=== PATIENT | male | born 1940 | race Caucasian/White ===

== ENCOUNTER → 2017-06-05 | Outpatient (CLI) | payer BC ==
[~2017-06-05] MED LIST: ASCO500 PO; ASPI325 PO; ASPI81CH; ASPI81CH PO; CHOL10002 PO; CLOP75 PO; COLC.6 PO; Carac30 GM TP; ENOX40I SC; ERYT.5TO OD; EZET10; FISH1000 PO; GABA100 PO; GLIP10ER PO; GLIP5ER; GLIP5ER PO; Hair, Skin & N1 EACH PO; IRON325 MG PO; Klor-Con 1010 MEQ PO; LOSHYD; LOSHYD100 PO; MECL25 PO; METF500 PO; METF500C PO; METHYLFOLATE PO; NEBI5 PO; OXYACE5T PO; POTA10T PO; POTASSIUM CHLO20 MEQ PO; POTCHL20ER; PREG75 PO; Prilosec Otc20 MG PO; Pyridium200 MG PO; VITAMIN B122500 MCG; VITAMIN C125 MG PO; VITAMIN D33000 UNIT PO; Vitamin C100 M1; Voltaren100 GM TP; WARF1 PO; WARF5 PO; [UNRECOGNIZED DRUG - OTHER] INJ; [UNRECOGNIZED DRUG - OTHER] PO
== END | disposition home or self-care (01) ==
LOC: PLD 10:09 → LAB SHORT 10:09
DX: D48.5 Neoplasm of uncertain behavior of skin (principal)
CPT/HCPCS: 88305

== ENCOUNTER 2018-07-31 10:54 | Day surgery (SDC) | payer BC ==
[~2018-07-31] VITALS: Ht 170.2 cm; Wt 71.2 kg
[~2018-07-31 10:54] MED LIST changes: +AMLO5 PO; -ASPI81CH; +FLUOROURACIL30 GM TOP; +GLIP10 PO; +LOSARTAN-HCTZ1 EAC1 PO; +METANX CAPSULE1 EACH PO; +Neurontin 300300 MG PO; +SIMV40 PO; +Travatan Z5 ML BOTHEYES; +Voltaren100 GM TOP
--- NOTE | 2018-07-31 12:13 | NUR ---
History, Chart, Medications and Allergies reviewed before start of procedure.Patient confirms NPO status and agrees with scheduled surgery. Patient reports completing Chlorhexadine shower X2 prior to admission to hospital.Surgical site prepped with 2% Chlorhexidine cloth wipe.
--- NOTE | 2018-07-31 16:24 | NUR ---
INTO PACU FROM OR. VSS RECIEVED REPORT FROM RN AND ANNESTHESIOLOGIST.
--- NOTE | 2018-07-31 16:44 | NUR ---
PATIENT BECAME SICK AND EMISIS ABOUT 50CC. STATES FEELING OF SICKNESS HAS PASSED. PATIENT CLEANED UP AND PARTIAL LINEN CHANGE
--- NOTE | 2018-07-31 17:23 | NUR ---
PATIENT FEELING MUCH BETTER PLACED SCOPE PATCH BEHIND RIGHT EAR. RETRIEVED LABETALOL BUT PATIENT BP LOWERED ITSELF SO NONE GIVEN. REPORT GIVEN TO CINTHYA RUVALCABAMINISTER OF RELIGION FLOOR. PATIENT ESCORTED TO ROOM AT THIS TIME BY DIONY HOLLEY RN
--- NOTE | 2018-07-31 18:13 | NUR ---
SHIFT SUMMARY PT A&OX4, VSS, S/P LAMI L4-L5, SURGICAL DRESSING CDI. DENIES PAIN AT THIS TIME. N&V TX'D WITH ZOFRAN, NO EMESIS; PT DENIES N&V AFTER MED. PT RESTING COMFORTABLY. AWAITING POST DEL ROSARIO VOID. WCTM & TX PER EMAR UNTIL REPORT GIVEN TO ONCOMING NOC RN.
--- NOTE | 2018-08-01 03:48 | NUR ---
SHIFT SUMMARY PT A&O X4 T/O SHIFT. POD#1 L 4-5 LAMINECTOMY; DRESSING TO LOW MID BACK CDI T/O SHIFT. PT DENIED PAIN T/O SHIFT; MEDICATIONS PER EMAR. PT DECLINED ICE TO OP SITE. VSS; NO ACUTE CHANGES. INSTRUCTED TO "LOG ROLL" IN AND OOB. UP WITH SBA. PT DENIED NAUSEA, SOB AND CP T/O THIS SHIFT. MAMI'S AND SCD'S TO BLE'S. CALL LIGHT IN REACH; PT DEMONSTRATES USE. WCTM UNTIL REPORT TO DAY SHIFT RN.
[2018-08-01] MEDS ORDERED: ROXICODONE5 MG PO (09:28)
--- NOTE | 2018-08-01 10:05 | NUR ---
DISCHARGE SUMMARY PT A&OX4, VSS, LEFT FLOOR VIA WC WITH FUR JOINER TO GO HOME WITH [facility] WITH ALL PERSONAL POSSESSIONS INCLUDING DISCHARGE PACKET, 1 MEDIPORE DRESSING AND 1 NARCOTIC SCRIPT. DISCHARGE INSTRUCTIONS PROVIDED. PT REP UNDERSTANDING THOSE INSTRUCTIONS INCLUDING SPONGE BATH UNTIL SATURDAY WHEN OK TO SHOWER AND REMOVE MEDIPORT OR REPLACE IF STILL OOZING, LEAVE STERIS STRIPS IN PLACE 7-10 DAYS WHEN THEY WILL COME OFF ON THEIR OWN OR SURGEON WILL REMOVE THEM AT FU APPT IN 2 WEEKS, NO BENDING, TWISTING OR LIFTING. IV DC'D.
== END 2018-08-01 09:57 | disposition home or self-care (01) ==
LOC: ORSCMMR 10:54 → ORD 12:30 → SURS 17:12 → ORSCMMR 08-01 09:57
PROVIDERS: Orthopaedic Surgery
PROC: 01NB0ZZ Release Lumbar Nerve, Open Approach (ICD-10-PCS; principal; 2018-07-31 12:30)
DX: M48.062 Spinal stenosis, lumbar region with neurogenic claudication (principal); I10 Essential (primary) hypertension; E11.9 Type 2 diabetes mellitus without complications; Z86.718 Personal history of other venous thrombosis and embolism; Z79.01 Long term (current) use of anticoagulants; Z79.899 Other long term (current) drug therapy; Z79.82 Long term (current) use of aspirin
CPT/HCPCS: 82947; 97116; 97162; 97530; J0171; J0690; J0735; J1100; J1885; J2250; J2405; J2704; J2765; J2795; J3010; J3370; J7120

== ENCOUNTER → 2018-11-17 | Outpatient (CLI) | payer BC ==
[~2018-11-17] MED LIST changes: +ROXICODONE5 MG PO
== END | disposition home or self-care (01) ==
LOC: LAB SHORT 11:13 → PLD 11:13
DX: D48.5 Neoplasm of uncertain behavior of skin (principal)
CPT/HCPCS: 88305

== ENCOUNTER 2020-08-03 10:31 | Day surgery (SDC) | payer BC, MEDICARE ==
[~2020-08-03] VITALS: Ht 167.6 cm; Wt 69.1 kg
--- NOTE | 2020-08-03 11:49 | NUR ---
08/03/20 1149 Jo Mccray IS[address] USED PER ORDER FOR PROCEDURE
== END 2020-08-03 12:17 | disposition home or self-care (01) ==
LOC: ORSCSDS 10:31
PROVIDERS: Orthopaedic Surgery
PROC: 3E0R33Z Introduction of Anti-inflammatory into Spinal Canal, Percutaneous Approach (ICD-10-PCS; principal; 2020-08-03 11:45)
DX: M54.16 Radiculopathy, lumbar region (principal); M54.5 Low back pain; M47.816 Spondylosis without myelopathy or radiculopathy, lumbar region; M47.26 Other spondylosis with radiculopathy, lumbar region; M48.062 Spinal stenosis, lumbar region with neurogenic claudication; I10 Essential (primary) hypertension; E78.5 Hyperlipidemia, unspecified; E11.9 Type 2 diabetes mellitus without complications; Z79.01 Long term (current) use of anticoagulants; Z79.899 Other long term (current) drug therapy
CPT/HCPCS: 82947; J1040

== ENCOUNTER 2020-09-28 07:08 | Day surgery (SDC) | payer BC, MEDICARE ==
[~2020-09-28] VITALS: Ht 162.6 cm; Wt 72.6 kg
[~2020-09-28 07:08] MED LIST changes: +Bystolic10 MG PO; +CORDRAN; +FURO20 PO; +GLIP5 PO; +HYDR10 PO; +LOSARTAN POTAS100 M1 PO
--- NOTE | 2020-09-28 09:53 | NUR ---
09/28/20 0953 Ashley Roach PATIENT POSITIONED ON LORE FRAME, GEL UNDER KNEES, KNEES FLEXED WITH PILLOWS, GEL UNDER SEAT BELT, EGG CRATE ON ARM BOARDS, PRONE VIEW HEAD POSITIONER. POSITON CONFIRMED BY SURGEON AND ANESTHESIA. PATIENT INTUBATED THEN TRANSFERED TO OR TABLE.
--- NOTE | 2020-09-28 12:31 | NUR ---
09/28/20 1231 Aprita Tomlin EKG RHYTHM STRIP PERFORMED AT BEDSIDE IN PACU WITH AT [facility] OBSERVING
== END 2020-09-28 13:12 | disposition home or self-care (01) ==
LOC: ORSCSDS 07:08
PROVIDERS: Orthopaedic Surgery
PROC: 01NB0ZZ Release Lumbar Nerve, Open Approach (ICD-10-PCS; principal; 2020-09-28 08:30)
DX: M47.816 Spondylosis without myelopathy or radiculopathy, lumbar region (principal); M48.062 Spinal stenosis, lumbar region with neurogenic claudication; I13.0 Hypertensive heart and chronic kidney disease with heart failure and stage 1 through stage 4 chronic kidney disease, or unspecified chronic kidney disease; E11.22 Type 2 diabetes mellitus with diabetic chronic kidney disease; N18.30 Chronic kidney disease, stage 3 unspecified; E78.5 Hyperlipidemia, unspecified; I73.9 Peripheral vascular disease, unspecified; Z79.01 Long term (current) use of anticoagulants; Z79.899 Other long term (current) drug therapy; Z79.84 Long term (current) use of oral hypoglycemic drugs
CPT/HCPCS: 82947; A9270; J0171; J0690; J1100; J1885; J2270; J2370; J2405; J2550; J2704; J3010; J3370; J7120

== ENCOUNTER → 2021-10-05 | Outpatient (CLI) | payer BC, MEDICARE ==
[2021-10-05 18:25] LABS: Bun/Creatinine Ratio 22.2 (12.0-20.0); Calcium, Blood 9.2 mg/dL (8.5-10.1); Creatinine, Blood 1.85 mg/dL (0.60-1.20); Potassium, Blood 4.5 mmol/L (3.5-5.5)
== END | disposition home or self-care (01) ==
LOC: LAB SHORT 17:12
PROVIDERS: Internal Medicine
DX: E11.8 Type 2 diabetes mellitus with unspecified complications (principal)
CPT/HCPCS: 80048; 83036

== ENCOUNTER → 2023-02-21 | Outpatient (CLI) | payer OTHER | END | disposition home or self-care (01) | LOC: LAB SHORT 10:30 → LAB 10:30 | DX: L08.9 Local infection of the skin and subcutaneous tissue, unspecified (principal) | CPT/HCPCS: 87070; 87077; 87186; 87205 ==

== ENCOUNTER 2023-08-06 19:55 | Emergency (ER) | payer OTHER ==
[~2023-08-06] VITALS: Ht 172.7 cm; Wt 78.0 kg
[2023-08-06 20:30] VITALS: BP 174/82
[2023-08-06 22:18] LABS: BASOPHILS ABSOLUTE AUTO 0.02 K/mm3 (0.00-0.23); BASOPHILS PERCENT AUTO 0 % (0-2); EOSINOPHILS ABSOLUTE AUTO 0.03 K/mm3 (0.00-0.68); EOSINOPHILS PERCENT AUTO 0 % (0-6); Hematocrit 45.6 % (37.0-53.0); Hemoglobin 14.5 g/dL (13.5-17.5); IMMATURE GRAN ABSOLUTE AUTO 0.04 K/mm3 (0.00-0.10); IMMATURE GRAN PERCENT AUTO 0 % (0-1); LYMPHOCYTES ABSOLUTE AUTO 0.81 K/mm3 (0.84-5.20); LYMPHOCYTES PERCENT AUTO 6 % (21-46); MONOCYTES ABSOLUTE AUTO 0.95 K/mm3 (0.16-1.47); MONOCYTES PERCENT AUTO 8 % (4-13); Mean Corpuscular HGB 28.8 pg (26.0-34.0); Mean Corpuscular HGB Conc 31.8 g/dL (31.5-36.5); Mean Corpuscular Volume 91 fL (80-100); Mean Platelet Volume 11.7 fL (9.1-12.4); NEUTROPHILS ABSOLUTE AUTO 10.78 K/mm3 (1.96-9.15); NEUTROPHILS PERCENT AUTO 85 % (41-73); Platelet Count 159 K/mm3 (150-400); RDW Coefficient Variation 14.6 % (11.7-14.2); RDW Standard Deviation 48.5 fL (35.1-46.3); Red Blood Cell Count 5.03 M/mm3 (4.30-5.90); White Blood Cell Count 12.63 K/mm3 (4.00-11.30)
[2023-08-06 22:55] LABS: Albumin, Blood 3.7 g/dL (3.4-5.0); Albumin/Globulin Ratio 0.9 (0.8-1.8); Bilirubin, Total 0.5 mg/dL (0.1-1.0); Bun/Creatinine Ratio 21.4 (12.0-20.0); Calcium, Blood 8.9 mg/dL (8.5-10.1); Creatinine, Blood 1.68 mg/dL (0.60-1.20); Globulin, Blood 4.2 g/dL (2.2-4.0); Potassium, Blood 4.8 mmol/L (3.5-5.5); Total Protein, Blood 7.9 g/dL (6.4-8.2)
[2023-08-07] MEDS ORDERED: Acetaminophen 500 MG Tab PO ONE (00:50)
[2023-08-07 01:42] LABS: Influenza A, PCR NEGATIVE (NEGATIVE); Influenza B, PCR NEGATIVE (NEGATIVE); Resp Syncytial Virus, PCR NEGATIVE (NEGATIVE)
[2023-08-07 01:50] LABS: SARS-Cov-2 (COVID-19) PCR, MMC POSITIVE (NEGATIVE)
== END 2023-08-07 01:02 | disposition home or self-care (01) ==
LOC: ER 19:55
PROVIDERS: Student in an Organized Health Care Education/Training Program
DX: U07.1 COVID-19 (principal); I10 Essential (primary) hypertension; I48.91 Unspecified atrial fibrillation; E11.9 Type 2 diabetes mellitus without complications; Z88.5 Allergy status to narcotic agent; Z88.8 Allergy status to other drugs, medicaments and biological substances; Z79.899 Other long term (current) drug therapy; Z79.84 Long term (current) use of oral hypoglycemic drugs
CPT/HCPCS: 0241U; 80053; 85025; 99284; A9270